=== PATIENT | male | born 1985 | race Caucasian/White ===

== ENCOUNTER 2018-02-06 14:16 | Emergency (ER) | payer SELFPAY, OTHER | END 2018-02-06 15:02 | disposition left against medical advice (07) | LOC: E/R 15:02 | DX: Z53.21 Procedure and treatment not carried out due to patient leaving prior to being seen by health care provider (principal) ==

== ENCOUNTER 2019-01-15 16:52 | Emergency (ER) | payer SELFPAY | END 2019-01-15 17:43 | disposition left against medical advice (07) | LOC: E/R 17:43 | DX: S00.83XA Contusion of other part of head, initial encounter (principal); V89.2XXA Person injured in unspecified motor-vehicle accident, traffic, initial encounter; Z87.891 Personal history of nicotine dependence | CPT/HCPCS: 99283 ==

== ENCOUNTER 2019-01-15 19:08 | Emergency (ER) | payer SELFPAY | END 2019-01-15 19:33 | disposition left against medical advice (07) | LOC: E/R 19:08 | DX: Z53.21 Procedure and treatment not carried out due to patient leaving prior to being seen by health care provider (principal) ==

== ENCOUNTER 2019-01-15 19:12 | Emergency (ER) | payer SELFPAY | END 2019-01-15 20:35 | disposition left against medical advice (07) | LOC: FTE 19:12 | DX: Z53.21 Procedure and treatment not carried out due to patient leaving prior to being seen by health care provider (principal) ==